=== PATIENT | male | born 1935 | race Caucasian/White ===

== ENCOUNTER 2021-02-22 18:58 | Inpatient (IN) | payer MEDICARE, SELFPAY ==
[~2021-02-22] VITALS: Ht 170.2 cm; Wt 93.0 kg
[2021-02-22 19:05] VITALS: BP_SYST 93
[2021-02-22] MEDS ORDERED: PANTOPRAZOLE SODIUM 80 MG in NS 100 ML IVP ONE (19:30)
[2021-02-22] MEDS ORDERED: NACL 0.9% 1,000 ML IV SCH (19:30)
[2021-02-22] MEDS ORDERED: PANTOPRAZOLE SODIUM 40 MG/VIAL (PROTONIX) IVP ONE (19:30)
[2021-02-22] MEDS ORDERED: ONDANSETRON HCL 4 MG/2 ML VIAL IVP ONE (19:30)
--- NOTE | 2021-02-22 19:43 | NUR ---
YOSI Dong examining the patient in the [facility].
--- NOTE | 2021-02-22 19:50 | NUR ---
Patient triaged and placed in amb [facility]. VSS and patient appears in no acute distress at this time. Accompanied by EMS, awaiting available bed, and MD notified of need for MSE.
[2021-02-22 20:10] LABS: BASOPHILS # (AUTO) 0.2 K/uL (0.0-0.2); BASOPHILS % (AUTO) 1.3 % (0.0-2.0); EOSINOPHILS % (AUTO) 0.2 % (0.0-4.0); HEMATOCRIT 41.1 % (36-54); HEMOGLOBIN 13.8 g/dL (14.0-18.0); LYMPHOCYTES # (AUTO) 0.7 K/uL (1.0-5.5); LYMPHOCYTES % (AUTO) 4.1 % (20.5-51.5); MEAN CORPUSCULAR HEMOGLOBIN 27 pg (27-31); MEAN CORPUSCULAR HGB CONC 34 % (32-36); MEAN CORPUSCULAR VOLUME 80 fL (79.0-98.0); MONOCYTES % (AUTO) 5.7 % (1.7-9.3); NEUTROPHILS % (AUTO) 88.7 % (40.0-70.0); PLATELET COUNT (AUTO) 448 K/uL (130-430); RED BLOOD CELL COUNT(AUTO) 5.11 MIL/uL (4.2-6.2); RED CELL DISTRIBUTION WIDTH 20.4 % (9.0-15.0); WHITE BLOOD COUNT (AUTO) 18.1 K/uL (4.8-10.8)
[2021-02-22 20:17] LABS: ANION GAP 13 (5-15); CALCIUM 9.4 mg/dL (8.4-11.0); CHLORIDE 93 mmol/L (98-107); CREATININE 1.68 mg/dL (0.55-1.30); GLUCOSE 237 mg/dL (70-99); POTASSIUM 4.3 mmol/L (3.5-5.1); SODIUM SERUM 134 mmol/L (136-145); UREA NITROGEN, BLOOD 36 mg/dL (8-21)
[2021-02-22 20:21] LABS: INR 1.2 (0.80-1.20); PROTHROMBIN TIME 12.8 SECS (9.5-12.5)
[2021-02-22 20:23] LABS: ALANINE AMINOTRANSFERASE 37 U/L (12-78); ASPARTATE AMINOTRANSFERASE 21 U/L (10-37); TOTAL BILIRUBIN 0.7 mg/dL (0.0-1.0)
[2021-02-22] MEDS ORDERED: NACL 0.9% 1,000 ML IV ONE (22:45)
[2021-02-22] MEDS ORDERED: cefTRIAXone 1 GM IVPB PREMIX 50 ML IV ONE (22:45)
--- NOTE | 2021-02-23 00:43 | NUR ---
Placed in room 4 . Placed on cardiac technologist, blood pressure machine and pulse oximeter. To gown for exam. Side rails up. Report given to PALOMA CASTANEDA.
--- NOTE | 2021-02-23 00:45 | NUR ---
Pt BIBA to ED with history of diabetes mellitus and hypertension who was brought into the ED by EMS for evaluation of nausea, coffee ground emesis and dark stools for the last three weeks. Per EMS the patient was noted to have increased generalized weakness today and fell while at home. Denies LOC or head trauma. The patient states that nothing seems to make his symptoms better or worse. He describes his symptoms as moderate severity and worsening. He endorses associated pallor and lightheadedness.
--- NOTE | 2021-02-23 00:50 | NUR ---
Dr. Carbone [facility] for pr update and re-eval
--- NOTE | 2021-02-23 01:14 | NUR ---
Dr. Carbone performed Rectal Exam bedside, well tolerated
[2021-02-23 02:50] LABS: BILIRUBIN,URINE NEGATIVE (NEGATIVE); BLOOD, URINE NEGATIVE (NEGATIVE); CLARITY/URINE SL CLOUDY (CLEAR); COLOR,URINE YELLOW (YELLOW); GLUCOSE,URINE NEGATIVE (NEGATIVE); KETONES,URINE NEGATIVE (NEGATIVE); LEUKOCYTE ESTERASE ,URINE NEGATIVE (NEGATIVE); NITRITE, URINE NEGATIVE (NEGATIVE); PROTEIN URINE 1+ (NEGATIVE); UROBILINOGEN,URINE 0.2 (0.2-1.0)
--- NOTE | 2021-02-23 03:05 | NUR ---
Pt's urine sample collected, well tolerated
[2021-02-23 03:30] LABS: BACTERIA,URINE MANY /HPF (None Seen); RBC,URINE 0-3 /HPF (0-3)
[2021-02-23 03:31] LABS: MUCUS,URINE 1+ /LPF (None Seen); YEAST,URINE Many /HPF (None Seen)
--- NOTE | 2021-02-23 04:12 | NUR ---
Pt resting in comfort on gurney rails up, with VSS
--- NOTE | 2021-02-23 06:08 | NUR ---
Pt resting in comfort on ED gurney with rails up, while VSS, no s/s of acute distress
[2021-02-23 07:19] LABS: BASOPHILS # (AUTO) 0.1 K/uL (0.0-0.2); BASOPHILS % (AUTO) 0.5 % (0.0-2.0); EOSINOPHILS # (AUTO) 0.1 K/uL (0.0-0.4); EOSINOPHILS % (AUTO) 0.5 % (0.0-4.0); HEMATOCRIT 33.8 % (36-54); HEMOGLOBIN 11.2 g/dL (14.0-18.0); LYMPHOCYTES # (AUTO) 1.3 K/uL (1.0-5.5); MEAN CORPUSCULAR HEMOGLOBIN 27 pg (27-31); MEAN CORPUSCULAR HGB CONC 33 % (32-36); MEAN CORPUSCULAR VOLUME 82 fL (79.0-98.0); MONOCYTES # (AUTO) 0.8 K/uL (0.0-1.0); MONOCYTES % (AUTO) 7.6 % (1.7-9.3); NEUTROPHILS # (AUTO) 8.4 K/uL (1.8-7.7); NEUTROPHILS % (AUTO) 79.4 % (40.0-70.0); PLATELET COUNT (AUTO) 304 K/uL (130-430); RED BLOOD CELL COUNT(AUTO) 4.13 MIL/uL (4.2-6.2); RED CELL DISTRIBUTION WIDTH 19.4 % (9.0-15.0); WHITE BLOOD COUNT (AUTO) 10.6 K/uL (4.8-10.8)
[2021-02-23 07:36] LABS: ANION GAP 6 (5-15); CALCIUM 8.1 mg/dL (8.4-11.0); CHLORIDE 101 mmol/L (98-107); CREATININE 1.22 mg/dL (0.55-1.30); GLUCOSE 135 mg/dL (70-99); POTASSIUM 3.7 mmol/L (3.5-5.1); SODIUM SERUM 138 mmol/L (136-145); UREA NITROGEN, BLOOD 32 mg/dL (8-21)
[2021-02-23 07:46] LABS: INR 1.2 (0.80-1.20)
[2021-02-23 08:07] LABS: ALANINE AMINOTRANSFERASE 32 U/L (12-78); ALBUMIN 2.3 g/dL (3.4-4.8); ASPARTATE AMINOTRANSFERASE 17 U/L (10-37); THYROID STIMULATING HORMONE 1.16 uIu/mL (0.36-3.74); TOTAL BILIRUBIN 0.4 mg/dL (0.0-1.0)
[2021-02-23 08:30] LABS: CHOLESTEROL 135 mg/dL (<200); HDL CHOLESTEROL 45 mg/dL (>45); LDL CHOLESTEROL 71 mg/dL (<100); TRIGLYCERIDES 86 mg/dL (30-150)
[2021-02-23] MEDS: PANTOPRAZOLE SODIUM 40 MG/VIAL (PROTONIX) IVP SCH (08:53)
--- NOTE | 2021-02-23 14:12 | NUR ---
Pt in bed resting with no s/s of distress. VSS. IV intact.
[2021-02-23] MEDS ORDERED: ACETAMINOPHEN 500 MG TABLET PO ONE (15:30)
[2021-02-23] MEDS: D5/0.45 NS 1,000 ML IV SCH (15:57)
--- NOTE | 2021-02-23 19:49 | NUR ---
assumed care of pt from cheo busby
--- NOTE | 2021-02-23 22:42 | NUR ---
PT IS RESTING IN BED. VSS. GIVEN UPDATE ON SITUATION
--- NOTE | 2021-02-24 01:00 | NUR ---
PT GIVEN SOME PUDDING AND JELLO FOR FOOD. VSS.
[2021-02-24 05:47] LABS: ALANINE AMINOTRANSFERASE 26 U/L (12-78); ALBUMIN 2.2 g/dL (3.4-4.8); ANION GAP 10 (5-15); ASPARTATE AMINOTRANSFERASE 15 U/L (10-37); CALCIUM 7.9 mg/dL (8.4-11.0); CHLORIDE 100 mmol/L (98-107); CREATININE 0.92 mg/dL (0.55-1.30); GLUCOSE 186 mg/dL (70-99); SODIUM SERUM 137 mmol/L (136-145); TOTAL BILIRUBIN 0.4 mg/dL (0.0-1.0); UREA NITROGEN, BLOOD 25 mg/dL (8-21)
[2021-02-24 05:48] LABS: BASOPHILS % (AUTO) 0.4 % (0.0-2.0); EOSINOPHILS # (AUTO) 0.1 K/uL (0.0-0.4); EOSINOPHILS % (AUTO) 1.5 % (0.0-4.0); HEMATOCRIT 34.1 % (36-54); HEMOGLOBIN 11.1 g/dL (14.0-18.0); LYMPHOCYTES # (AUTO) 1.1 K/uL (1.0-5.5); LYMPHOCYTES % (AUTO) 12.3 % (20.5-51.5); MEAN CORPUSCULAR HEMOGLOBIN 27 pg (27-31); MEAN CORPUSCULAR HGB CONC 33 % (32-36); MEAN CORPUSCULAR VOLUME 82 fL (79.0-98.0); MONOCYTES # (AUTO) 0.6 K/uL (0.0-1.0); MONOCYTES % (AUTO) 6.3 % (1.7-9.3); NEUTROPHILS # (AUTO) 7.2 K/uL (1.8-7.7); NEUTROPHILS % (AUTO) 79.5 % (40.0-70.0); PLATELET COUNT (AUTO) 283 K/uL (130-430); RED BLOOD CELL COUNT(AUTO) 4.17 MIL/uL (4.2-6.2); RED CELL DISTRIBUTION WIDTH 19.2 % (9.0-15.0); WHITE BLOOD COUNT (AUTO) 9.1 K/uL (4.8-10.8)
[2021-02-24] MEDS: D5/0.45 NS 1,000 ML IV SCH ×2 (06:15→19:00)
[2021-02-24 06:27] LABS: LIPASE 11657 U/L (73-393); POTASSIUM 2.9 mmol/L (3.5-5.1)
[2021-02-24] MEDS: POTASSIUM CHLORIDE 20 MEQ in D5LR 1,000 ML IV SCH ×2 (06:45→09:00)
[2021-02-24] MEDS ORDERED: POTASSIUM CHLORIDE 20 MEQ TAB.PRT.SR PO ONE (06:45)
[2021-02-24] MEDS ORDERED: KCL 20 mEq in 100 mL (PREMIX) 100 ML IV ONE (06:45)
[2021-02-24] MEDS ORDERED: POTASSIUM CHLORIDE 20 MEQ TAB.PRT.SR ONE (06:51)
--- NOTE | 2021-02-24 07:19 | NUR ---
REPORT GIVEN TO AKILAH CASTANEDA
--- NOTE | 2021-02-24 07:50 | NUR ---
Report recieved from Javier CASTANEDA.
--- NOTE | 2021-02-24 07:52 | NUR ---
Called pharmacy to bring pt his Potassium medications.
[2021-02-24] MEDS: PANTOPRAZOLE SODIUM 40 MG/VIAL (PROTONIX) IVP SCH (09:45)
--- NOTE | 2021-02-24 10:01 | NUR ---
Pt currently running on d5% w/ 0.45% NS and potassium 20meQ running at 50ml/hr.
--- NOTE | 2021-02-24 10:45 | NUR ---
Pt's O2 saturation decreased to 88%. Placed pt on simple mask and O2 saturation did not increase. Placed pt on non-rebreather 15l and O2 saturation dropped to 78%. Dr. Burk notified and he gave order to place pt on BIPAP and to order a cardiology consult.
--- NOTE | 2021-02-24 11:05 | NUR ---
Dr. Junior at bedside.
--- NOTE | 2021-02-24 11:07 | NUR ---
Pt removed from BIPAP and placed on NC 4L. O2 saturation at 97%. EKG done at bedside.
--- NOTE | 2021-02-24 19:15 | NUR ---
Change of shift report received from Elaina Moseley.Awaiting room availability for Tele admit.
--- NOTE | 2021-02-24 20:50 | NUR ---
Report given to Madisyn Moseley/MST via phone To Tele 114.
[2021-02-24 21:15] VITALS: BP_SYST 129
[2021-02-25 07:29] LABS: BASOPHILS # (AUTO) 0.2 K/uL (0.0-0.2); BASOPHILS % (AUTO) 2.2 % (0.0-2.0); EOSINOPHILS # (AUTO) 0.1 K/uL (0.0-0.4); EOSINOPHILS % (AUTO) 1.1 % (0.0-4.0); HEMATOCRIT 40.7 % (36-54); HEMOGLOBIN 13.4 g/dL (14.0-18.0); LYMPHOCYTES # (AUTO) 0.8 K/uL (1.0-5.5); LYMPHOCYTES % (AUTO) 10.8 % (20.5-51.5); MEAN CORPUSCULAR HEMOGLOBIN 27 pg (27-31); MEAN CORPUSCULAR HGB CONC 33 % (32-36); MEAN CORPUSCULAR VOLUME 82 fL (79.0-98.0); MONOCYTES # (AUTO) 0.4 K/uL (0.0-1.0); MONOCYTES % (AUTO) 4.7 % (1.7-9.3); NEUTROPHILS # (AUTO) 6.2 K/uL (1.8-7.7); NEUTROPHILS % (AUTO) 81.2 % (40.0-70.0); PLATELET COUNT (AUTO) 308 K/uL (130-430); RED BLOOD CELL COUNT(AUTO) 4.99 MIL/uL (4.2-6.2); RED CELL DISTRIBUTION WIDTH 19.5 % (9.0-15.0); WHITE BLOOD COUNT (AUTO) 7.6 K/uL (4.8-10.8)
[2021-02-25 08:00] VITALS: BP_SYST 130
[2021-02-25 08:00] LABS: ALANINE AMINOTRANSFERASE 30 U/L (12-78); ALBUMIN 2.6 g/dL (3.4-4.8); AMYLASE 227 U/L (0-100); ANION GAP 8 (5-15); ASPARTATE AMINOTRANSFERASE 17 U/L (10-37); CALCIUM 8.2 mg/dL (8.4-11.0); CHLORIDE 101 mmol/L (98-107); CREATININE 0.82 mg/dL (0.55-1.30); GLUCOSE 164 mg/dL (70-99); POTASSIUM 3.5 mmol/L (3.5-5.1); SODIUM SERUM 135 mmol/L (136-145); TOTAL BILIRUBIN 0.5 mg/dL (0.0-1.0); UREA NITROGEN, BLOOD 15 mg/dL (8-21)
[2021-02-25 08:03] LABS: LIPASE 1389 U/L (73-393)
[2021-02-25] MEDS: D5/0.45 NS 1,000 ML IV SCH ×2 (08:20→21:40)
[2021-02-25] MEDS: PANTOPRAZOLE SODIUM 40 MG/VIAL (PROTONIX) IVP SCH (10:26)
[2021-02-25] MEDS: POTASSIUM CHLORIDE 20 MEQ in D5LR 1,000 ML IV SCH (10:27)
[2021-02-25 10:32] LABS: CHOLESTEROL 165 mg/dL (<200); HDL CHOLESTEROL 58 mg/dL (>45); LDL CHOLESTEROL 78 mg/dL (<100); TRIGLYCERIDES 112 mg/dL (30-150)
--- NOTE | 2021-02-25 10:32 | NUR ---
Dietitian Recommendations *Recommend: Full liquid CCHO diet. Glucerna TID. *Recommend: advance diet when medically appropriate. (GI soft CCHO diet) Please see Nutritional Assessment.
[2021-02-25 12:00] VITALS: BP_SYST 120
[2021-02-25 14:51] VITALS: BP_SYST 120
[2021-02-25 16:27] VITALS: BP_SYST 120
[2021-02-25 20:00] VITALS: BP_SYST 132
--- NOTE | 2021-02-25 20:00 | NUR ---
opening note patient is resting in bed with is eye close vitals taken no noted signs of pain or distress.
[2021-02-25] MEDS: ONDANSETRON HCL 4 MG/2 ML VIAL IVP PRN (21:36)
--- NOTE | 2021-02-25 22:00 | NUR ---
emesis patient noted to have one episode of emesis he was given PRN Zofran with noted improvement within 30min
[2021-02-26 00:45] VITALS: BP_SYST 136
[2021-02-26 02:33] VITALS: BP_SYST 129
[2021-02-26] MEDS: POTASSIUM CHLORIDE 20 MEQ in D5LR 1,000 ML IV SCH ×2 (04:00→12:37)
--- NOTE | 2021-02-26 05:04 | NUR ---
Nutrition Update Constantin Scale 12 noted. Pt admitted for GI Bleed Diet: Regular BMI: 32.1 kg/m2 RD to follow per nutrition care standards.
--- NOTE | 2021-02-26 05:52 | NUR ---
closing note patient stated that he did not need to use the urinal and was monitored throughout the night with no noted signs of distress. patient slept most of the night.
--- NOTE | 2021-02-26 06:15 | NUR ---
RD Notification for N/V >3 days received 02/25/21 2470 Initial Nutritional Assessment was done 02/25/21. Please see note for details. RD to follow per nutrition care standards. ALF, RD
[2021-02-26 08:00] VITALS: BP_SYST 130
[2021-02-26 08:36] LABS: ALANINE AMINOTRANSFERASE 23 U/L (12-78); ALBUMIN 2.5 g/dL (3.4-4.8); ANION GAP 6 (5-15); ASPARTATE AMINOTRANSFERASE 17 U/L (10-37); CALCIUM 8.3 mg/dL (8.4-11.0); CHLORIDE 100 mmol/L (98-107); CREATININE 0.86 mg/dL (0.55-1.30); GLUCOSE 198 mg/dL (70-99); LIPASE 1325 U/L (73-393); SODIUM SERUM 134 mmol/L (136-145); TOTAL BILIRUBIN 0.6 mg/dL (0.0-1.0); UREA NITROGEN, BLOOD 14 mg/dL (8-21)
[2021-02-26 08:38] LABS: BASOPHILS % (AUTO) 0.3 % (0.0-2.0); EOSINOPHILS # (AUTO) 0.1 K/uL (0.0-0.4); EOSINOPHILS % (AUTO) 0.7 % (0.0-4.0); HEMATOCRIT 37.9 % (36-54); HEMOGLOBIN 12.6 g/dL (14.0-18.0); LYMPHOCYTES # (AUTO) 0.8 K/uL (1.0-5.5); LYMPHOCYTES % (AUTO) 7.8 % (20.5-51.5); MEAN CORPUSCULAR HEMOGLOBIN 27 pg (27-31); MEAN CORPUSCULAR HGB CONC 33 % (32-36); MEAN CORPUSCULAR VOLUME 82 fL (79.0-98.0); MONOCYTES # (AUTO) 0.5 K/uL (0.0-1.0); MONOCYTES % (AUTO) 4.6 % (1.7-9.3); NEUTROPHILS # (AUTO) 9.3 K/uL (1.8-7.7); NEUTROPHILS % (AUTO) 86.6 % (40.0-70.0); PLATELET COUNT (AUTO) 287 K/uL (130-430); RED BLOOD CELL COUNT(AUTO) 4.65 MIL/uL (4.2-6.2); RED CELL DISTRIBUTION WIDTH 19.7 % (9.0-15.0); WHITE BLOOD COUNT (AUTO) 10.7 K/uL (4.8-10.8)
[2021-02-26] MEDS: PANTOPRAZOLE SODIUM 40 MG/VIAL (PROTONIX) IVP SCH (09:00)
[2021-02-26 12:00] VITALS: BP_SYST 126
[2021-02-26] MEDS: D5/0.45 NS 1,000 ML IV SCH (12:04)
[2021-02-26] MEDS: ONDANSETRON HCL 4 MG/2 ML VIAL IVP PRN (12:05)
--- NOTE | 2021-02-26 12:05 | NUR ---
Patient has c/o of nausea at this time. One small white mucous containing emesis this am. PT notified for ambulation but will ambulate patient when not nauseous. patient ate 90% of his breakfast. patient incontinent of urine. incontinent care rendered and patient own brief from home applied per his request. No skin breakdown. will monitor for safety and comfort.
--- NOTE | 2021-02-26 13:06 | NUR ---
patient ambulated around the [facility] east and west hallway with front wheel walker. patient able to tolerate. patient has front wheel walker at home and also assistance with family. Will notify
--- NOTE | 2021-02-26 15:42 | NUR ---
Patient has been nauseated all day with two episodes of vomiting. patient has not tolerating PO meals and liquids this shift. MD notified at this time and reglan ivp was ordered. will administer and monitor patient. comfort measures implemented and maintained at this time. call light in reach
[2021-02-26] MEDS: METOCLOPRAMIDE HCL 10 MG/2 ML VIAL IVP PRN (15:46)
[2021-02-26 16:00] VITALS: BP_SYST 136
--- NOTE | 2021-02-26 16:54 | NUR ---
Patient up out of bed wandering appearing confused. patient had episode similar to this two days ago. is at the bedside at the time. Reglan therapeutic. patient reoriented and placed comfortably back in bed. patient continues to be NSR on the monitor the shift with bbb. will continue to maintain comfort and safety.
--- NOTE | 2021-02-26 19:04 | NUR ---
patient refused dinner trarani leonard. patient n/v resolved. patient states he doesnt want to smell any food or it will make him nausous
[2021-02-26] MEDS ORDERED: METOCLOPRAMIDE HCL 10 MG TABLET PO PRN (19:30)
[2021-02-26] MEDS ORDERED: NON-FORMULARY MEDICATION (Melatonin/Pyridoxine HCl (B6) (Melatonin 3 mg Tablet) 1 TAB) PO SCH (19:30)
[2021-02-26] MEDS ORDERED: POLYETHYLENE GLYCOL 3350, 17 GM/ POWD.PACK PO PRN (19:30)
[2021-02-26] MEDS ORDERED: HYDROcodone/ACETAMIN 5-325 MG TAB (NORCO/ VICODIN) PO PRN (19:30)
[2021-02-26] MEDS ORDERED: ONDANSETRON 4 MG ODT TAB PO PRN (19:30)
[2021-02-26] MEDS ORDERED: GLIP2.5T3 PO (19:39)
[2021-02-26] MEDS ORDERED: MELA1TAB29 PO (19:39)
[2021-02-26] MEDS ORDERED: TAMS-11 PO (19:39)
[2021-02-26] MEDS ORDERED: POLY17PO4 PO (19:39)
[2021-02-26] MEDS ORDERED: FINA5TAB3 PO (19:39)
[2021-02-26] MEDS ORDERED: ASCO500T20 PO (19:39)
[2021-02-26] MEDS ORDERED: FERR-69 PO (19:39)
[2021-02-26] MEDS ORDERED: METO-290 PO (19:39)
[2021-02-26] MEDS ORDERED: HYDR-3917 PO (19:39)
[2021-02-26] MEDS ORDERED: ONDA4TAB5 PO (19:39)
[2021-02-26] MEDS ORDERED: OMEP20CA15 PO (19:39)
[2021-02-26 20:00] VITALS: BP_SYST 132
[2021-02-26] MEDS ORDERED: ASCORBIC ACID 500 MG TABLET PO ONE (20:30)
[2021-02-26] MEDS: INSULIN REGULAR, HUMAN 100 UNITS/ML, 10 ML VIAL (humuLIN R) SUBCUT PRN (23:32)
[2021-02-26] MEDS: FERROUS SULFATE 325 MG TABLET.DR PO SCH (23:33)
[2021-02-26] MEDS: TAMSULOSIN HCL 0.4 MG CAP PO SCH (23:33)
[2021-02-27 00:31] VITALS: BP_SYST 142
[2021-02-27 03:12] VITALS: BP_SYST 132
[2021-02-27] MEDS: POTASSIUM CHLORIDE 20 MEQ in D5LR 1,000 ML IV SCH ×2 (03:24→16:43)
[2021-02-27] MEDS: INSULIN REGULAR, HUMAN 100 UNITS/ML, 10 ML VIAL (humuLIN R) SUBCUT PRN ×3 (06:08→17:48)
[2021-02-27 06:54] LABS: BASOPHILS % (AUTO) 0.3 % (0.0-2.0); EOSINOPHILS % (AUTO) 0.2 % (0.0-4.0); HEMATOCRIT 35.2 % (36-54); HEMOGLOBIN 11.3 g/dL (14.0-18.0); LYMPHOCYTES % (AUTO) 6.3 % (20.5-51.5); MEAN CORPUSCULAR HEMOGLOBIN 26 pg (27-31); MEAN CORPUSCULAR HGB CONC 32 % (32-36); MEAN CORPUSCULAR VOLUME 82 fL (79.0-98.0); MONOCYTES # (AUTO) 0.6 K/uL (0.0-1.0); MONOCYTES % (AUTO) 3.4 % (1.7-9.3); NEUTROPHILS # (AUTO) 14.6 K/uL (1.8-7.7); NEUTROPHILS % (AUTO) 89.8 % (40.0-70.0); PLATELET COUNT (AUTO) 244 K/uL (130-430); RED BLOOD CELL COUNT(AUTO) 4.31 MIL/uL (4.2-6.2); RED CELL DISTRIBUTION WIDTH 19.9 % (9.0-15.0); WHITE BLOOD COUNT (AUTO) 16.3 K/uL (4.8-10.8)
[2021-02-27 07:16] LABS: ANION GAP 8 (5-15); CALCIUM 8.2 mg/dL (8.4-11.0); CHLORIDE 101 mmol/L (98-107); CREATININE 0.82 mg/dL (0.55-1.30); GLUCOSE 163 mg/dL (70-99); POTASSIUM 4.2 mmol/L (3.5-5.1); SODIUM SERUM 136 mmol/L (136-145); UREA NITROGEN, BLOOD 13 mg/dL (8-21)
[2021-02-27 08:15] VITALS: BP_SYST 110
--- NOTE | 2021-02-27 08:15 | NUR ---
Rec'd pt A+Ox3- not to full date at 0700. Pt denies pain. IV noted to L AC- infusing IVF. CSMW satisfactory. No headache, dizziness, chest pain, numbness, tingling or edema. Lungs clear. No SOB/cough. RA 98%. BSx4. good appetite- diabetic diet. No nausea/vomiting. Belching/hiccups +++. LBM Feb 25. Void-inc. Skin intact. Bedrest. VSS. Glum 166 this am. No other voiced concerns. Will continue to monitor
[2021-02-27] MEDS: ASCORBIC ACID 500 MG TABLET PO SCH (08:29)
[2021-02-27] MEDS: FERROUS SULFATE 325 MG TABLET.DR PO SCH ×2 (08:29→21:58)
[2021-02-27] MEDS: PANTOPRAZOLE SODIUM 40 MG/VIAL (PROTONIX) IVP SCH (08:29)
[2021-02-27] MEDS ORDERED: ONDANSETRON 4 MG ODT TAB PO ONE (08:45)
[2021-02-27 11:55] VITALS: BP_SYST 127
[2021-02-27] MEDS: D5/0.45 NS 1,000 ML IV SCH ×2 (13:20→13:31)
--- NOTE | 2021-02-27 13:29 | NUR ---
pt changed for inc urine and emesis. see eMAR
[2021-02-27] MEDS: ONDANSETRON HCL 4 MG/2 ML VIAL IVP PRN ×2 (13:31→21:58)
[2021-02-27] MEDS ORDERED: PROCHLORPERAZINE MALEATE 10 MG TABLET PO ONE (15:00)
--- NOTE | 2021-02-27 15:25 | NUR ---
CM: S/w Edyta/spouse, stated there is pallitive care nurse coming for blood drawn once a week. She requested HH or more aids to see the pt. I faxed the HH/PT referral /order to [place] for review and approval. Dr Burk plans to dc pt tomorrow.
[2021-02-27] MEDS: ONDANSETRON 4 MG ODT TAB PO SCH (16:44)
[2021-02-27 16:47] VITALS: BP_SYST 122
--- NOTE | 2021-02-27 18:07 | NUR ---
Pt resting in bed. No appetite- does not want to eat dinner. IVF infusing. No other voiced concerns. Bed in low position. Call campo in reach. Will continue to monitor.
[2021-02-27 20:00] VITALS: BP_SYST 112
[2021-02-27] MEDS: TAMSULOSIN HCL 0.4 MG CAP PO SCH (21:58)
[2021-02-27] MEDS: PROCHLORPERAZINE MALEATE 10 MG TABLET PO SCH (22:00)
[2021-02-28] VITALS: BP_SYST 108
[2021-02-28] MEDS: PROCHLORPERAZINE MALEATE 10 MG TABLET PO SCH ×3 (05:51→21:53)
[2021-02-28] MEDS: ONDANSETRON 4 MG ODT TAB PO SCH ×2 (06:18→17:21)
[2021-02-28] MEDS: INSULIN REGULAR, HUMAN 100 UNITS/ML, 10 ML VIAL (humuLIN R) SUBCUT PRN ×3 (06:19→22:02)
[2021-02-28] MEDS: ASCORBIC ACID 500 MG TABLET PO SCH (07:41)
[2021-02-28 07:42] LABS: BASOPHILS % (AUTO) 0.1 % (0.0-2.0); EOSINOPHILS % (AUTO) 0.1 % (0.0-4.0); HEMATOCRIT 36.2 % (36-54); HEMOGLOBIN 11.9 g/dL (14.0-18.0); LYMPHOCYTES # (AUTO) 0.9 K/uL (1.0-5.5); MEAN CORPUSCULAR HEMOGLOBIN 27 pg (27-31); MEAN CORPUSCULAR HGB CONC 33 % (32-36); MEAN CORPUSCULAR VOLUME 81 fL (79.0-98.0); MONOCYTES # (AUTO) 0.6 K/uL (0.0-1.0); MONOCYTES % (AUTO) 2.5 % (1.7-9.3); NEUTROPHILS # (AUTO) 21.2 K/uL (1.8-7.7); NEUTROPHILS % (AUTO) 93.3 % (40.0-70.0); PLATELET COUNT (AUTO) 233 K/uL (130-430); RED BLOOD CELL COUNT(AUTO) 4.49 MIL/uL (4.2-6.2); RED CELL DISTRIBUTION WIDTH 19.5 % (9.0-15.0); WHITE BLOOD COUNT (AUTO) 22.7 K/uL (4.8-10.8)
[2021-02-28] MEDS: PANTOPRAZOLE SODIUM 40 MG/VIAL (PROTONIX) IVP SCH (07:42)
[2021-02-28] MEDS: FERROUS SULFATE 325 MG TABLET.DR PO SCH ×2 (07:42→21:53)
[2021-02-28 08:00] VITALS: BP_SYST 100
--- NOTE | 2021-02-28 08:00 | NUR ---
Rec'd pt A+Ox3- not to date at 0700. Pt denies pain. IV noted to L AC- infusing IVF. CSMW satisfactory. No headache, dizziness, chest pain, numbness, tingling or edema. Lungs clear. No SOB/cough. O2 4L 92%. BSx4. fair appetite- diabetic diet. No nausea/vomiting at this time. LBM Feb 27. Void-inc. Skin intact. Bedrest. VSS. Glum 183 this am. Pt states he feels No other voiced concerns. Will continue to monitor
[2021-02-28 08:09] LABS: ANION GAP 10 (5-15); CALCIUM 8.5 mg/dL (8.4-11.0); CHLORIDE 99 mmol/L (98-107); CREATININE 0.74 mg/dL (0.55-1.30); GLUCOSE 185 mg/dL (70-99); POTASSIUM 4.2 mmol/L (3.5-5.1); SODIUM SERUM 133 mmol/L (136-145); UREA NITROGEN, BLOOD 15 mg/dL (8-21)
[2021-02-28 08:30] VITALS: BP_SYST 100
[2021-02-28] MEDS: POTASSIUM CHLORIDE 20 MEQ in D5LR 1,000 ML IV SCH (11:51)
[2021-02-28 11:56] VITALS: BP_SYST 101
--- NOTE | 2021-02-28 12:20 | NUR ---
CONSULTATION PAGED REASON FOR CONSULTATION:ELEVATED WBC WAS CONSULT CALLED?Y PERSON WHO WAS NOTIFIED:LIANNA CONSULTING PHYSICIAN:MARIO BANDA TREADLE CUT OFF SAW OPERATOR SPECIALTY:INFECTIOUS DISEASE TREADLE CUT OFF SAW OPERATOR PHONE NUMBER:[phone] REQUESTING PHYSICIAN:QUYNH MARIE
--- NOTE | 2021-02-28 13:05 | NUR ---
Pt resting in bed, family at bedside. Explained patient status and ID consult. Family aware and awaiting ID arrival.
--- NOTE | 2021-02-28 17:00 | NUR ---
pt ted herr called . poc discussed with her. she stated she wanted to talk to dr gonzalez or amelia doctor. fay manufacturing engineer chief of dr bob here at nursing station notified.manufacturing engineer chief stated she will call pt's .
--- NOTE | 2021-02-28 17:58 | NUR ---
Pt resting in bed. No voiced concerns. Call light in reach. Bed in low position. IVF infusing. Will continue to monitor.
--- NOTE | 2021-02-28 20:48 | NUR ---
sbar report Received sbar report from TONYA Tello. Patient is awake resting in bed, no distress and nonlabored breathing on 2L NC. IVF infusing via IV to LAC. Side rails up, bed is locked in lowest position, bed alarm on and call light w/in reach.
[2021-02-28] MEDS: TAMSULOSIN HCL 0.4 MG CAP PO SCH (21:53)
--- NOTE | 2021-02-28 22:06 | NUR ---
meds Scheduled meds given; patient swallowed tablets/pill with water. Accucheck result of 220mg/dL and covered per sliding scale. He denies pain and has no further needs.
[2021-03-01 00:39] VITALS: BP_SYST 120
--- NOTE | 2021-03-01 05:36 | NUR ---
CONSULTATION CALLED FOR DR. PRECIADO FOR CONSULT OF AFIB ORDER BY DR. Alis HURST SPOKE WITH ALDAIR
[2021-03-01] MEDS ORDERED: PIPERACILLIN/TAZOBACTAM 2.25 GM VIAL IV ONE (06:32)
[2021-03-01] MEDS: INSULIN REGULAR, HUMAN 100 UNITS/ML, 10 ML VIAL (humuLIN R) SUBCUT PRN ×2 (07:03→17:44)
[2021-03-01] MEDS: PIPERACILLIN/TAZO 2.25G/DEX-IS 50 ML IV SCH ×4 (07:04→22:26)
[2021-03-01] MEDS: ONDANSETRON 4 MG ODT TAB PO SCH ×2 (07:04→17:44)
[2021-03-01] MEDS: POTASSIUM CHLORIDE 20 MEQ in D5LR 1,000 ML IV SCH ×2 (07:04→17:56)
[2021-03-01] MEDS: PROCHLORPERAZINE MALEATE 10 MG TABLET PO SCH ×3 (07:04→21:23)
--- NOTE | 2021-03-01 07:20 | NUR ---
closing note Patient is awake resting in bed, no distress and nonlabored breathing on 2L NC. IV is alarming it no longer is flushing, not patent. Morning accucheck result of 197mg/dL and covered per sliding scale. Will endorse care.
[2021-03-01] MEDS: FERROUS SULFATE 325 MG TABLET.DR PO SCH ×2 (07:53→21:23)
[2021-03-01] MEDS: PANTOPRAZOLE SODIUM 40 MG/VIAL (PROTONIX) IVP SCH (07:53)
[2021-03-01] MEDS: ASCORBIC ACID 500 MG TABLET PO SCH (07:53)
[2021-03-01 08:00] VITALS: BP_SYST 112
--- NOTE | 2021-03-01 08:00 | NUR ---
Rec'd pt A+Ox3- not to date at 0700. Pt denies pain. IV noted to L AC- not patent, restarted to L arm- 22g. IVF infusing. CSMW satisfactory. No headache, dizziness, chest pain, numbness, tingling or edema. Lungs diminished to R side. No SOB/cough. RA 100%. BSx4. fair/poor appetite- diabetic diet. No nausea/vomiting at this time. LBM Mar 01- loose x2 this am- inc. Void-inc. Skin tear + dressing noted to R elbow. Bedrest. VSS. Glum 197 this am. Pt states he feels exhausted this am and much weaker. No other voiced concerns. Will continue to monitor.
[2021-03-01 11:13] LABS: BASOPHILS % (AUTO) 0.2 % (0.0-2.0); EOSINOPHILS # (AUTO) 0.1 K/uL (0.0-0.4); HEMATOCRIT 32.6 % (36-54); HEMOGLOBIN 10.6 g/dL (14.0-18.0); MEAN CORPUSCULAR HEMOGLOBIN 26 pg (27-31); MEAN CORPUSCULAR HGB CONC 33 % (32-36); MONOCYTES # (AUTO) 0.6 K/uL (0.0-1.0)
[2021-03-01 11:17] LABS: EOSINOPHILS % (AUTO) 0.6 % (0.0-4.0); LYMPHOCYTES # (AUTO) 0.8 K/uL (1.0-5.5); LYMPHOCYTES % (AUTO) 5.7 % (20.5-51.5); MEAN CORPUSCULAR VOLUME 81 fL (79.0-98.0); MONOCYTES % (AUTO) 4.3 % (1.7-9.3); NEUTROPHILS # (AUTO) 12.8 K/uL (1.8-7.7); NEUTROPHILS % (AUTO) 89.2 % (40.0-70.0); PLATELET COUNT (AUTO) 215 K/uL (130-430); RED BLOOD CELL COUNT(AUTO) 4.02 MIL/uL (4.2-6.2); RED CELL DISTRIBUTION WIDTH 19.7 % (9.0-15.0); WHITE BLOOD COUNT (AUTO) 14.4 K/uL (4.8-10.8)
[2021-03-01 12:00] LABS: ALANINE AMINOTRANSFERASE 14 U/L (12-78); ALBUMIN 1.9 g/dL (3.4-4.8); ANION GAP 8 (5-15); ASPARTATE AMINOTRANSFERASE 19 U/L (10-37); CALCIUM 8.8 mg/dL (8.4-11.0); CHLORIDE 101 mmol/L (98-107); CREATININE 0.76 mg/dL (0.55-1.30); GLUCOSE 129 mg/dL (70-99); LIPASE 249 U/L (73-393); POTASSIUM 4.4 mmol/L (3.5-5.1); SODIUM SERUM 134 mmol/L (136-145); TOTAL BILIRUBIN 0.5 mg/dL (0.0-1.0); UREA NITROGEN, BLOOD 23 mg/dL (8-21)
[2021-03-01 12:06] VITALS: BP_SYST 121
--- NOTE | 2021-03-01 15:05 | NUR ---
Spoke with Pt's son in regards to pt status and plan. Son seemed quite content and happy with getting an update. States he will speak to his mom (pts ) about pt status and will update her. Passed the phone to case management for further questions.
--- NOTE | 2021-03-01 15:28 | NUR ---
CM: Discharge barriers: pt c/o increased weakness, nausea/vomiting/diarrhea for the past 2 days. CRX showed acquired PNA. TONYA Garcias provided son/Marcelo about current medical status and POC. Son is not sure whether the pt can go home with home health this weekend. He will consult with family for the placement.
--- NOTE | 2021-03-01 17:20 | NUR ---
Pt IV infiltrated- L arm swollen. Pt states he did not feel it swelling. Attempt x2. Consent and order for midline obtained. Will await placement to restart IVF. Will continue to monitor.
[2021-03-01 17:44] VITALS: BP_SYST 119
--- NOTE | 2021-03-01 18:19 | NUR ---
Pt resting in bed. No voiced concerns. Awaiting midline placement. Tele insitu. Call campo in reach. Bed in low position. Will continue to monitor.
[2021-03-01 20:00] VITALS: BP_SYST 110
[2021-03-01] MEDS: TAMSULOSIN HCL 0.4 MG CAP PO SCH (21:23)
[2021-03-01] MEDS: ONDANSETRON HCL 4 MG/2 ML VIAL IVP PRN (22:32)
[2021-03-02] MEDS: PIPERACILLIN/TAZO 2.25G/DEX-IS 50 ML IV SCH ×5 (00:15→23:00)
[2021-03-02 00:16] VITALS: BP_SYST 112
--- NOTE | 2021-03-02 00:40 | NUR ---
EMESIS AND PRN REGLIN PATIENT INFORMED NURSE THAT HE FELT IF HE HAD TO VOMIT. HE WAS GIVEN I.V REGLIN 30 MIN LATER HE WAS NOTED TO HAVE EMESIS OVER THE SIDE OF HIS BED AND ON THE FLOOR. YELLOW/ GREEN IN COLOR. PATIENT STATED THAT HE FELT BETTER AFTER HE VOMITED. PATIENT WAS MONITORED AND NO OTHER INCIDENTS HAPPENED.
[2021-03-02 05:45] VITALS: BP_SYST 112
[2021-03-02] MEDS: ONDANSETRON 4 MG ODT TAB PO SCH ×2 (06:52→16:17)
[2021-03-02] MEDS: INSULIN REGULAR, HUMAN 100 UNITS/ML, 10 ML VIAL (humuLIN R) SUBCUT PRN ×4 (06:54→21:56)
[2021-03-02] MEDS: PROCHLORPERAZINE MALEATE 10 MG TABLET PO SCH ×3 (06:57→21:50)
[2021-03-02] MEDS: POTASSIUM CHLORIDE 20 MEQ in D5LR 1,000 ML IV SCH ×2 (07:04→22:57)
[2021-03-02 07:47] LABS: BASOPHILS % (AUTO) 0.4 % (0.0-2.0); EOSINOPHILS # (AUTO) 0.1 K/uL (0.0-0.4); EOSINOPHILS % (AUTO) 0.7 % (0.0-4.0); HEMATOCRIT 32.9 % (36-54); HEMOGLOBIN 10.8 g/dL (14.0-18.0); LYMPHOCYTES % (AUTO) 10.3 % (20.5-51.5); MEAN CORPUSCULAR HEMOGLOBIN 27 pg (27-31); MEAN CORPUSCULAR HGB CONC 33 % (32-36); MEAN CORPUSCULAR VOLUME 81 fL (79.0-98.0); MONOCYTES # (AUTO) 0.7 K/uL (0.0-1.0); MONOCYTES % (AUTO) 6.8 % (1.7-9.3); NEUTROPHILS # (AUTO) 8.3 K/uL (1.8-7.7); NEUTROPHILS % (AUTO) 81.8 % (40.0-70.0); PLATELET COUNT (AUTO) 231 K/uL (130-430); RED BLOOD CELL COUNT(AUTO) 4.06 MIL/uL (4.2-6.2); RED CELL DISTRIBUTION WIDTH 19.5 % (9.0-15.0); WHITE BLOOD COUNT (AUTO) 10.2 K/uL (4.8-10.8)
[2021-03-02 08:00] VITALS: BP_SYST 106
--- NOTE | 2021-03-02 08:00 | NUR ---
OPENING NOTE Received shift report from nurse. Patient AxOx3 currently resting in bed and respirations remain even and non-labored on room air. PICC line is patent and infusing fluids as ordered. Bed locked in lowest position and call light is within reach. Will continue to monitor.
[2021-03-02] MEDS: ASCORBIC ACID 500 MG TABLET PO SCH (08:41)
[2021-03-02] MEDS: FERROUS SULFATE 325 MG TABLET.DR PO SCH ×2 (08:41→21:50)
[2021-03-02] MEDS: PANTOPRAZOLE SODIUM 40 MG/VIAL (PROTONIX) IVP SCH (08:42)
[2021-03-02 09:28] LABS: ANION GAP 10 (5-15); CALCIUM 8.9 mg/dL (8.4-11.0); CHLORIDE 100 mmol/L (98-107); CREATININE 0.91 mg/dL (0.55-1.30); GLUCOSE 233 mg/dL (70-99); POTASSIUM 4.3 mmol/L (3.5-5.1); SODIUM SERUM 133 mmol/L (136-145); UREA NITROGEN, BLOOD 24 mg/dL (8-21)
[2021-03-02 12:41] VITALS: BP_SYST 116
[2021-03-02] MEDS: ONDANSETRON HCL 4 MG/2 ML VIAL IVP PRN (13:54)
[2021-03-02 16:33] VITALS: BP_SYST 128
[2021-03-02 20:00] VITALS: BP_SYST 122
[2021-03-02] MEDS: TAMSULOSIN HCL 0.4 MG CAP PO SCH (21:50)
[2021-03-03] VITALS (8 sets, daily range): BP systolic 110–122
[2021-03-03] MEDS: PIPERACILLIN/TAZO 2.25G/DEX-IS 50 ML IV SCH ×3 (06:06→17:36)
[2021-03-03] MEDS: PROCHLORPERAZINE MALEATE 10 MG TABLET PO SCH ×3 (06:24→21:53)
[2021-03-03] MEDS: ONDANSETRON 4 MG ODT TAB PO SCH ×2 (06:25→17:00)
[2021-03-03] MEDS: INSULIN REGULAR, HUMAN 100 UNITS/ML, 10 ML VIAL (humuLIN R) SUBCUT PRN ×3 (06:33→22:01)
[2021-03-03] MEDS: ASCORBIC ACID 500 MG TABLET PO SCH (09:15)
[2021-03-03] MEDS: PANTOPRAZOLE SODIUM 40 MG/VIAL (PROTONIX) IVP SCH (09:15)
[2021-03-03] MEDS: FERROUS SULFATE 325 MG TABLET.DR PO SCH ×2 (09:15→21:53)
--- NOTE | 2021-03-03 09:20 | NUR ---
Nutrition F/U Admitting Diagnosis GI Bleed Reviewed Pertinent Medical/Surgical Hx Medical Record Patient Medical History Comment: Melena, N/V, Hx of Adenocarcinoma, Mildly elevated RELAY DISPATCHER level, Mild anemia, Leukocytosis, DM, HTN, Anorexia, Wt loss, Pancreatobiliary Carcinoma per MD notes. SARS-CoV-2 Ag Rapid 02/[address] bedside visit deferred d/t high RD load. Per EMR review, pt continues w/ N/V, fair appetite noted -- however, PO intake average of 17% based on past 10 meal records since Nutrition Assessment 02/25; abd is soft and non-distended w/ active bowel sounds; last BM x1 03/03. Pt is at increased risk for malnutrition. ONS is warranted. Current Diet Order/Nutrition Support CCHO x4 days Patient/Significant Other Unable To Verbalize Education Provided Not Indicated Pertinent Medications VIT C, ferrous sulfate, SSI, zofran, piperacillin/tazobactam, reglan, protonix Pertinent Labs 03/02: Na 133 L, K 4.3 WNL, BG 233 H, BUN 24 H, CRE 0.91 WNL, TG 112 WNL, Chol 165 WNL Height (Feet) 5 feet Height (Inches) 8.00 inches Weight (Pounds) 160 pounds (02/25) -- NEW WT: 205#/93 kg (02/25) -- questionable 45# wt increase documented Weight (Calculated Kilograms) 72.556829 kilograms Patient Weight 72.575 kg Body Mass Index 24.33 kg/m2 (normal) -- NEW BMI: 32.1 kg/m2 (obesity class I) %IBW 104 [place]/Adjusted Body Weight 154#/ 70kg Recent Weight Change N/A Weight Status Appropriate Current % PO N/A Estimated Energy Expenditure (kcals/day) 4991-9711 (30-35 kcal/kg CBW for CA) Estimated Protein Required (g/day) 73-110 (1-1.5 gm/kg CBW for CA) Estimated Fluid Required (l/day) 1.8-2.2 (25-30ml/kg CBW for GERIAT maintenance) Problem/Etiology/Signs/Symptoms Altered nutrition related labs r/t endocrine dysfunction AEB elevated BG, DM. 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 *ongoing Expected Outcomes/Goals Monitor diet advancement, appetite and PO intake w/ goal of pt meeting more than 75% of estimated nutritional needs, labs trending WNL, normal GI function, skin integrity/wt maintenance. Dietitian Recommendations * CCHO, soft (low-fiber/bland) diet, Glucerna TID, Gerard BID (supplements yield 840 kcal/day, 35 gm protein/day) * Encourage increase PO intakes Follow Up High Risk: F/U in 2-3 days
--- NOTE | 2021-03-03 09:25 | NUR ---
Dietitian Recommendations * CCHO, soft (low-fiber/bland) diet, Glucerna TID, Gerard BID (supplements yield 840 kcal/day, 35 gm protein/day) * Encourage increase PO intakes LP, RD Please refer to Nutrition F/U for details.
--- NOTE | 2021-03-03 09:40 | NUR ---
Nutrition Consult RD received Nutrition Consult for decreased appetite, calorie count 03/03/[address] implemented 2-day calorie count via [employer] nutrition software to begin at lunch today, 03/03 and will end at lunch 03/05 (as long as pt is still in-house). Please complete calorie count sheet that will be placed underneath the patient's meal ticket at each meal time TID. Please save completed sheet for RD and/or give to FNS Dept after each meal. Addendum: 03/03/21 at [address] RD spoke w/ pt's primary RN, Erna at [facility]. RD instructed RN to have calorie count completed and left in [facility] close to handwashing station for future RD collection.
[2021-03-03] MEDS: POTASSIUM CHLORIDE 20 MEQ in D5LR 1,000 ML IV SCH (10:59)
[2021-03-03] MEDS ORDERED: PROMETHAZINE HCL 12.5 MG/SUPP.RECT RC PRN (12:30)
[2021-03-03] MEDS ORDERED: DEXTROSE 50% JECT 50 ML DISP.SYRIN IVP PRN (17:15)
[2021-03-03] MEDS: TAMSULOSIN HCL 0.4 MG CAP PO SCH (21:53)
[2021-03-04] VITALS: BP_SYST 112; BP_SYST 118
[2021-03-04] MEDS: POTASSIUM CHLORIDE 20 MEQ in D5LR 1,000 ML IV SCH ×2 (00:01→15:26)
[2021-03-04] MEDS: PIPERACILLIN/TAZO 2.25G/DEX-IS 50 ML IV SCH ×4 (00:02→17:55)
--- NOTE | 2021-03-04 01:03 | NUR ---
PAGED DOCTOR PAGED DOCTOR ROLF
--- NOTE | 2021-03-04 01:18 | NUR ---
BLEEDING WHEN PATIENT WAS CHECKED IT WAS NOTED THAT HE HAD A LARGE AMOUNT OF BLOOD ON HIS BED. WHEN CHECKING THE PATIENT IT WAS NOTED THAT BRIGHT RED BLOOD WITH LARGE CLOTS WAS COMING OUT OF HIS RECTUM. DR. MONTENEGRO WAS CONTACTED AND A STAT ORDER WAS GIVEN FOR A CBC WITH HEMOGLOBIN IS BELOW 7.0 TO GIVE 2 LITERS OF BLOOD. LAB WAS CONTACTED AND THE ORDER WAS PLACED.
[2021-03-04 02:26] LABS: BASOPHILS % (AUTO) 0.3 % (0.0-2.0); EOSINOPHILS % (AUTO) 0.4 % (0.0-4.0); HEMATOCRIT 26.7 % (36-54); HEMOGLOBIN 8.8 g/dL (14.0-18.0); LYMPHOCYTES # (AUTO) 0.9 K/uL (1.0-5.5); LYMPHOCYTES % (AUTO) 8.2 % (20.5-51.5); MEAN CORPUSCULAR HEMOGLOBIN 27 pg (27-31); MEAN CORPUSCULAR HGB CONC 33 % (32-36); MEAN CORPUSCULAR VOLUME 81 fL (79.0-98.0); MONOCYTES # (AUTO) 0.7 K/uL (0.0-1.0); MONOCYTES % (AUTO) 5.9 % (1.7-9.3); NEUTROPHILS # (AUTO) 9.7 K/uL (1.8-7.7); NEUTROPHILS % (AUTO) 85.2 % (40.0-70.0); PLATELET COUNT (AUTO) 235 K/uL (130-430); RED BLOOD CELL COUNT(AUTO) 3.29 MIL/uL (4.2-6.2); RED CELL DISTRIBUTION WIDTH 19.7 % (9.0-15.0); WHITE BLOOD COUNT (AUTO) 11.4 K/uL (4.8-10.8)
[2021-03-04 02:38] LABS: ALANINE AMINOTRANSFERASE 24 U/L (12-78); ALBUMIN 1.6 g/dL (3.4-4.8); ANION GAP 6 (5-15); ASPARTATE AMINOTRANSFERASE 18 U/L (10-37); CALCIUM 7.9 mg/dL (8.4-11.0); CHLORIDE 99 mmol/L (98-107); CREATININE 0.91 mg/dL (0.55-1.30); GLUCOSE 132 mg/dL (70-99); POTASSIUM 4.4 mmol/L (3.5-5.1); SODIUM SERUM 133 mmol/L (136-145); TOTAL BILIRUBIN 0.7 mg/dL (0.0-1.0); UREA NITROGEN, BLOOD 16 mg/dL (8-21)
[2021-03-04 03:02] LABS: TRIGLYCERIDES 61 mg/dL (30-150)
[2021-03-04] MEDS: ONDANSETRON 4 MG ODT TAB PO SCH ×2 (06:08→17:40)
[2021-03-04] MEDS: PROCHLORPERAZINE MALEATE 10 MG TABLET PO SCH ×3 (06:08→21:37)
[2021-03-04] MEDS: INSULIN REGULAR, HUMAN 100 UNITS/ML, 10 ML VIAL (humuLIN R) SUBCUT PRN ×4 (06:12→21:58)
[2021-03-04 08:07] VITALS: BP_SYST 99
--- NOTE | 2021-03-04 08:19 | NUR ---
NOTES PATIENT AAOX 4. NON PRODUCTIVE COUGH NOTED. LUNGS BILATERALLY DIMINISHED AT THE BASES. NO OXYGEN NOTED. HAS MIDLINE PICC GRZEGORZ WITH LR PLUS 20 KCL AT 75CC/HR INFUSING ON WELL. EATING BREAKFAST . CALL LIGHTS WITHIN REACH. BED LOW POSITION, ALARMED AND LOCKED. WILL CONTINUE
[2021-03-04] MEDS: PANTOPRAZOLE SODIUM 40 MG/VIAL (PROTONIX) IVP SCH (08:31)
[2021-03-04] MEDS: FERROUS SULFATE 325 MG TABLET.DR PO SCH ×2 (08:31→21:37)
[2021-03-04] MEDS: ASCORBIC ACID 500 MG TABLET PO SCH (08:31)
--- NOTE | 2021-03-04 08:41 | NUR ---
BS 154 MG /DL. REFUSED TO HAVE COVERAGE FOR NOW.
--- NOTE | 2021-03-04 08:42 | NUR ---
DUE MEDS GIVEN
--- NOTE | 2021-03-04 09:16 | NUR ---
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 SARS-CoV-2 Ag Rapid 02/23 Negative Subjective Information: Nutrition consult for TPN received. RD bedside visit was deferred and short note d/t high pt load. Per EMR review, abdomen is soft and tender, BM 03/04 x3, Constantin scale: 11, pale skin color and RN noted erythema to R lateral elbow and 2+ non-pitting edema to left arm. No PO intake recorded in EMR since 03/01/2021. Per previous RD note, calorie count has been ordered for pt to assess adequacy of PO intake. RD to follow up on calorie count forms in nursing unit tomorrow (03/05 end of calorie count). May continue to provide PO diet w/ TPN. Pt w/ peripheral line. RD s/w pharmD re: TPN rec. PharmD acknowledged. Current Diet Order/Nutrition Support: GI Soft CCHO, Glucerna TID, Gerard BID x1 day Patient/Significant Other Unable To Verbalize Education Provided Not Indicated Pertinent Medications VIT C, ferrous sulfate, SSI, zofran, piperacillin/tazobactam, Miralax, Reglan, D5% Lr at 75ml/hr (306 calories) Pertinent Labs 03/04: Na 133 L, K 4.4 WNL, BG 132 H, POC BG 224H, BUN 16 WNL, CRE 0.91 WNL, TG 61 WNL, Chol 165 WNL Height (Feet) 5 feet, 8 inches. New Height in chart: 5'7 Weight (Pounds) 160 pounds (02/25) -- NEW WT: 205#/93 kg (02/25) -- questionable 45# wt increase documented Body Mass Index 24.33 kg/m2 (normal) -- NEW BMI: 32.1 kg/m2 (obesity class I) [place]/Adjusted Body Weight 154#/ 70kg. NEW IBW: 148#/ 67kg Recent Weight Change N/A Weight Status Appropriate Current % PO N/A NEW Estimated Energy Expenditure (kcals/day) (30-35 kcal/kg IBW for CA) NEW Estimated Protein Required (g/day) 69-100 (1-1.5 gm/kg IBW for CA) NEW Estimated Fluid Required (l/day) 1.7-2 (25-30ml/kg IBW for GERIAT maintenance) Problem/Etiology/Signs/Symptoms Altered nutrition related labs r/t endocrine dysfunction AEB elevated BG, DM. 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 *ongoing Inadequate oral intake r/t very poor appetite 2/2 complicated GI function AEB negligible PO and need for TPN. (*new) Expected Outcomes/Goals Monitor TPN tolerance, appetite and intake w/ goal of pt meeting more than 75% of estimated nutritional needs, labs trending WNL, normal GI function, skin integrity/wt maintenance. Dietitian Recommendations * Recommend: D20% AA 10% at 90ml/hr (goal rate), IL20% at 10ml/hr via peripheral line. Provides: 1646 kcal, 108gm protein, 2400ml fluids and GIR 1.6gm CHO/kg/min. Meets (at goal): 82% of lower end of estimated calorie needs and 108% of upper end of estimated protein needs. * Consider discontinuing D5% Lr once TPN is started. * Continue CCHO, soft (low-fiber/bland) diet, Glucerna TID, Gerard BID Follow Up High Risk: F/U in 2-3 days
--- NOTE | 2021-03-04 09:25 | NUR ---
Dietitian Recommendations * Recommend: D20% AA 10% at 90ml/hr (goal rate), IL20% at 10ml/hr via peripheral line. Provides: 1646 kcal, 108gm protein, 2400ml fluids and GIR 1.6gm CHO/kg/min. Meets (at goal): 82% of lower end of estimated calorie needs and 108% of upper end of estimated protein needs. * Consider discontinuing D5% Lr once TPN is started. * Continue CCHO, soft (low-fiber/bland) diet, Glucerna TID, Gerard BID [facility], RD
[2021-03-04] MEDS ORDERED: HYDROCORTISONE ACETATE 1 SUPP (ANUSOL HC) RC ONE (09:30)
--- NOTE | 2021-03-04 11:12 | NUR ---
CM: Pt starts on TPN today. Per Arpan/son will discuss with family for GT placement plan. He also asked not to call pt's due to her high anxiety. Please first call son/Marcelo (same name as patient) and Arpan. Rakesh: I spoke with Dayami, NVP dept # [phone] requesting to home health arrangement set up. Dayami confirmed receipt the order and referral package faxing date 02/27/21. Said, the assigned CM/Dolis will call me back to discuss the dcp. Addendum: 03/04/21 at 1618 by Claire Johns RN Per Dr Burk, to consult GI for possible GT feeding placement.
[2021-03-04 11:47] VITALS: BP_SYST 102
--- NOTE | 2021-03-04 15:50 | NUR ---
CALLED DR RAHEL SANTILLAN REGARDING CONTINOUS BLEEDING FROM THE RECTUM. ABOUT 2 CUPS. BRIGHT RED BLOOD. BARBARA AND HYGIENE CARE DONE. AWAITING TO CALL BACK
[2021-03-04 16:54] VITALS: BP_SYST 100
[2021-03-04] MEDS: METOCLOPRAMIDE HCL 10 MG/2 ML VIAL IVP PRN (17:41)
[2021-03-04 18:10] LABS: BASOPHILS % (AUTO) 0.3 % (0.0-2.0); EOSINOPHILS % (AUTO) 0.3 % (0.0-4.0); HEMATOCRIT 22.5 % (36-54); HEMOGLOBIN 7.3 g/dL (14.0-18.0); LYMPHOCYTES # (AUTO) 1.1 K/uL (1.0-5.5); LYMPHOCYTES % (AUTO) 8.2 % (20.5-51.5); MEAN CORPUSCULAR HEMOGLOBIN 26 pg (27-31); MEAN CORPUSCULAR HGB CONC 32 % (32-36); MEAN CORPUSCULAR VOLUME 81 fL (79.0-98.0); MONOCYTES # (AUTO) 0.9 K/uL (0.0-1.0); NEUTROPHILS % (AUTO) 84.2 % (40.0-70.0); PLATELET COUNT (AUTO) 252 K/uL (130-430); RED BLOOD CELL COUNT(AUTO) 2.78 MIL/uL (4.2-6.2); RED CELL DISTRIBUTION WIDTH 18.9 % (9.0-15.0); WHITE BLOOD COUNT (AUTO) 13.1 K/uL (4.8-10.8)
[2021-03-04 18:53] VITALS: BP_SYST 99
--- NOTE | 2021-03-04 20:03 | NUR ---
ENDORSED TO INCOMING NURSE.
--- NOTE | 2021-03-04 20:05 | NUR ---
CALLED DR MCGINNIS SPOKE VALDEZ REGARDING H/H 7.3/22.5 AWAITING TO CALL BACK.
[2021-03-04] MEDS ORDERED: *PPN PER PHARMACY XX PRN (21:00)
[2021-03-04] MEDS ORDERED: SODIUM CHLORIDE IV SCH ×10 (21:00)
[2021-03-04] MEDS ORDERED: [UNRECOGNIZED DRUG - OTHER] IV SCH ×10 (21:00)
[2021-03-04] MEDS ORDERED: TPN PERIPHERAL IV SCH ×10 (21:00)
[2021-03-04] MEDS: HYDROCORTISONE ACETATE 1 SUPP (ANUSOL HC) RC SCH (21:00)
[2021-03-04] MEDS ORDERED: NA PHOS IV SCH ×10 (21:00)
[2021-03-04] MEDS: TAMSULOSIN HCL 0.4 MG CAP PO SCH (21:37)
[2021-03-05] MEDS: FAT EMULSIONS 250 ML IV SCH (00:27)
[2021-03-05] MEDS: PIPERACILLIN/TAZO 2.25G/DEX-IS 50 ML IV SCH ×4 (00:49→18:19)
[2021-03-05 01:20] VITALS: BP_SYST 93
[2021-03-05] MEDS: POTASSIUM CHLORIDE 20 MEQ in D5LR 1,000 ML IV SCH ×2 (02:44→18:10)
[2021-03-05 06:58] LABS: BASOPHILS % (AUTO) 0.4 % (0.0-2.0); EOSINOPHILS # (AUTO) 0.1 K/uL (0.0-0.4); EOSINOPHILS % (AUTO) 0.6 % (0.0-4.0); HEMATOCRIT 22.5 % (36-54); HEMOGLOBIN 7.5 g/dL (14.0-18.0); LYMPHOCYTES # (AUTO) 0.9 K/uL (1.0-5.5); LYMPHOCYTES % (AUTO) 8.8 % (20.5-51.5); MEAN CORPUSCULAR HEMOGLOBIN 28 pg (27-31); MEAN CORPUSCULAR HGB CONC 33 % (32-36); MEAN CORPUSCULAR VOLUME 83 fL (79.0-98.0); MONOCYTES # (AUTO) 0.6 K/uL (0.0-1.0); MONOCYTES % (AUTO) 5.5 % (1.7-9.3); NEUTROPHILS # (AUTO) 8.5 K/uL (1.8-7.7); NEUTROPHILS % (AUTO) 84.7 % (40.0-70.0); PLATELET COUNT (AUTO) 211 K/uL (130-430); RED BLOOD CELL COUNT(AUTO) 2.71 MIL/uL (4.2-6.2); RED CELL DISTRIBUTION WIDTH 18.6 % (9.0-15.0)
[2021-03-05] MEDS: ONDANSETRON 4 MG ODT TAB PO SCH ×2 (07:00→18:09)
[2021-03-05 07:14] LABS: ALANINE AMINOTRANSFERASE 16 U/L (12-78); ALBUMIN 1.6 g/dL (3.4-4.8); ANION GAP 7 (5-15); ASPARTATE AMINOTRANSFERASE 14 U/L (10-37); CALCIUM 7.9 mg/dL (8.4-11.0); CHLORIDE 101 mmol/L (98-107); CREATININE 0.77 mg/dL (0.55-1.30); GLUCOSE 239 mg/dL (70-99); PHOSPHORUS 2.9 mg/dL (2.7-4.5); POTASSIUM 4.7 mmol/L (3.5-5.1); SODIUM SERUM 134 mmol/L (136-145); UREA NITROGEN, BLOOD 15 mg/dL (8-21)
[2021-03-05 08:25] VITALS: BP_SYST 90
[2021-03-05 08:25] LABS: WHITE BLOOD COUNT (AUTO) 10.1 K/uL (4.8-10.8)
[2021-03-05 08:44] VITALS: BP_SYST 105
[2021-03-05] MEDS: ASCORBIC ACID 500 MG TABLET PO SCH (08:54)
[2021-03-05] MEDS: FERROUS SULFATE 325 MG TABLET.DR PO SCH ×2 (08:54→20:50)
[2021-03-05] MEDS: PROCHLORPERAZINE MALEATE 10 MG TABLET PO SCH ×3 (08:54→20:50)
[2021-03-05] MEDS: PANTOPRAZOLE SODIUM 40 MG/VIAL (PROTONIX) IVP SCH (08:55)
--- NOTE | 2021-03-05 08:59 | NUR ---
NOTES PATIENT AAO 4. LUNGS BILATERALLY DIMINISHED AT THE BASES. ABDOMEN SOFT AND NON DISTENDED. HAS IV ACCESS ON THE RT UPPER ARM MIDLINE LR +20 KNL AT 100CC/HR INFUSING ON WELL. TPN 43CC/HR INFUSING AND TPN AT 5CC/HR INFUSING ON WELL. CALL LIGHTS WITHIN REACH. BED LOW POSITION, ALARMED AND LOCKED. WILL CONTINUE
--- NOTE | 2021-03-05 09:01 | NUR ---
DUE MES GIVEN AT THIS TIME.
--- NOTE | 2021-03-05 09:59 | NUR ---
Calorie Count MD ordered calorie count on 03/03, previous RD provided instructions to nursing staff on how to complete calorie count forms from dietary that should have come with the meal tray. RD received 1 form yesterday for lunch, and none before or after that. Per EMR review, pt was started on TPN yesterday, and was placed on Clear liquid diet this morning. PO intake from lunch 03/04 provided: 350 kcal, and 12gm protein. PPN intake for rate of 43ml/hr provides: 796 kcal, 52gm protein, 1152ml and GIR 0.76gm/kg/min which meets 37% of estimated calorie needs and 52% of estimated protein needs. Current PO intake does not meet at least 75% of estimated needs and RD rec to continue w/ PPN support until pt is meeting >75% of nutrient needs from PO alone. RD to follow per nutrition care standards. ASHLEY, RD
--- NOTE | 2021-03-05 10:00 | NUR ---
DR MCGINNIS CAME TO ORDER COLONOSCOPY
[2021-03-05 13:31] VITALS: BP_SYST 107
[2021-03-05] MEDS: INSULIN REGULAR, HUMAN 100 UNITS/ML, 10 ML VIAL (humuLIN R) SUBCUT PRN (14:05)
--- NOTE | 2021-03-05 14:45 | NUR ---
BT INITIATION: Consent signed per TELEPHONE CONSENT FROM , agreeing to administration of blood. Blood has been type and crossmatched. Blood sent from blood bank. Information on unit of blood checked against patient wristband at bedside by two nurses. All information matches. Patient or responsible green party informed of potential complications associated with blood transfusion. Informed of possible transfusion reaction symptoms. Aware of need to notify nurse at once of itching, shortness of breath, flushing, feeling of impending doom, or other symptoms not previously present. Vital signs taken within 5 minutes prior to initiation of transfusion. RN will remain with patient for first 15 minutes of transfusion at which time vital signs will be re-assessed. VITALS SIGNS STABLE. AFEBRILE
[2021-03-05] MEDS ORDERED: BISACODYL 5 MG TABLET.DR (DULCOLAX) PO ONE (17:00)
--- NOTE | 2021-03-05 17:00 | NUR ---
FIRST UNIT OF PRBC ENDED AT THIS TIME WITH NO TRANSFUSION REACTION NOTED. PATIENT STABLE.
[2021-03-05] MEDS ORDERED: GOLYTELY / COLYTE SOLUTION 4 LITERS PO ONE (18:00)
[2021-03-05 18:06] VITALS: BP_SYST 100
--- NOTE | 2021-03-05 18:20 | NUR ---
LATEST BS 151 MV/XL.REFUSED COVERAGE SO FAR.
[2021-03-05] MEDS: TAMSULOSIN HCL 0.4 MG CAP PO SCH (20:50)
[2021-03-05] MEDS ORDERED: NA PHOS IV SCH ×9 (21:00)
[2021-03-05] MEDS ORDERED: TPN PERIPHERAL IV SCH ×9 (21:00)
[2021-03-05] MEDS ORDERED: SODIUM CHLORIDE IV SCH ×9 (21:00)
[2021-03-05] MEDS ORDERED: [UNRECOGNIZED DRUG - OTHER] IV SCH ×9 (21:00)
--- NOTE | 2021-03-05 21:04 | NUR ---
PAGED PAGED DOCTOR ROLF
[2021-03-05] MEDS: ONDANSETRON HCL 4 MG/2 ML VIAL IVP PRN (21:38)
[2021-03-06] MEDS: FAT EMULSIONS 250 ML IV SCH ×2 (00:54→22:23)
[2021-03-06] MEDS: PIPERACILLIN/TAZO 2.25G/DEX-IS 50 ML IV SCH ×4 (02:43→17:02)
[2021-03-06 03:51] VITALS: BP_SYST 120
[2021-03-06 03:58] VITALS: BP_SYST 120
[2021-03-06] MEDS: POTASSIUM CHLORIDE 20 MEQ in D5LR 1,000 ML IV SCH (05:47)
[2021-03-06] MEDS: PROCHLORPERAZINE MALEATE 10 MG TABLET PO SCH ×3 (06:00→22:21)
[2021-03-06] MEDS: ONDANSETRON 4 MG ODT TAB PO SCH ×2 (06:59→16:26)
[2021-03-06 07:11] LABS: BASOPHILS % (AUTO) 0.4 % (0.0-2.0); EOSINOPHILS # (AUTO) 0.2 K/uL (0.0-0.4); EOSINOPHILS % (AUTO) 2.1 % (0.0-4.0); HEMATOCRIT 26.8 % (36-54); HEMOGLOBIN 8.9 g/dL (14.0-18.0); LYMPHOCYTES # (AUTO) 0.8 K/uL (1.0-5.5); MEAN CORPUSCULAR HEMOGLOBIN 28 pg (27-31); MEAN CORPUSCULAR HGB CONC 33 % (32-36); MEAN CORPUSCULAR VOLUME 85 fL (79.0-98.0); MONOCYTES # (AUTO) 0.5 K/uL (0.0-1.0); MONOCYTES % (AUTO) 5.7 % (1.7-9.3); NEUTROPHILS # (AUTO) 7.1 K/uL (1.8-7.7); NEUTROPHILS % (AUTO) 82.8 % (40.0-70.0); PLATELET COUNT (AUTO) 256 K/uL (130-430); RED BLOOD CELL COUNT(AUTO) 3.16 MIL/uL (4.2-6.2); RED CELL DISTRIBUTION WIDTH 17.6 % (9.0-15.0); WHITE BLOOD COUNT (AUTO) 8.5 K/uL (4.8-10.8)
[2021-03-06] MEDS: ONDANSETRON HCL 4 MG/2 ML VIAL IVP PRN ×2 (07:38→15:45)
[2021-03-06] MEDS: INSULIN REGULAR, HUMAN 100 UNITS/ML, 10 ML VIAL (humuLIN R) SUBCUT PRN ×4 (07:48→22:42)
--- NOTE | 2021-03-06 08:10 | NUR ---
OPENING NOTE Received shift report from security shift supervisor RN. Patient currently resting in bed and respirations remain even and non-labored on room air. Midline is patent and infusing TPN/fluids as ordered. Bed locked in lowest position and call light is within reach. Will continue to monitor.
[2021-03-06 08:12] LABS: ALANINE AMINOTRANSFERASE 18 U/L (12-78); ALBUMIN 1.7 g/dL (3.4-4.8); ANION GAP 7 (5-15); ASPARTATE AMINOTRANSFERASE 10 U/L (10-37); CALCIUM 7.9 mg/dL (8.4-11.0); CHLORIDE 100 mmol/L (98-107); CREATININE 0.77 mg/dL (0.55-1.30); GLUCOSE 244 mg/dL (70-99); PHOSPHORUS 2.7 mg/dL (2.7-4.5); POTASSIUM 3.8 mmol/L (3.5-5.1); SODIUM SERUM 134 mmol/L (136-145); TOTAL BILIRUBIN 0.8 mg/dL (0.0-1.0); UREA NITROGEN, BLOOD 12 mg/dL (8-21)
[2021-03-06 08:41] VITALS: BP_SYST 100
[2021-03-06] MEDS: ASCORBIC ACID 500 MG TABLET PO SCH (09:00)
[2021-03-06] MEDS: FERROUS SULFATE 325 MG TABLET.DR PO SCH ×2 (09:00→22:22)
[2021-03-06] MEDS: HYDROCORTISONE ACETATE 1 SUPP (ANUSOL HC) RC SCH ×2 (09:00→21:00)
[2021-03-06] MEDS: PANTOPRAZOLE SODIUM 40 MG/VIAL (PROTONIX) IVP SCH (09:01)
[2021-03-06 11:59] LABS: BILIRUBIN,URINE NEGATIVE (NEGATIVE); BLOOD, URINE 1+ (NEGATIVE); CLARITY/URINE CLEAR (CLEAR); COLOR,URINE YELLOW (YELLOW); GLUCOSE,URINE 2+ (NEGATIVE); KETONES,URINE NEGATIVE (NEGATIVE); LEUKOCYTE ESTERASE ,URINE NEGATIVE (NEGATIVE); NITRITE, URINE NEGATIVE (NEGATIVE); PROTEIN URINE NEGATIVE (NEGATIVE); UROBILINOGEN,URINE 0.2 (0.2-1.0)
[2021-03-06 12:00] VITALS: BP_SYST 115
--- NOTE | 2021-03-06 12:00 | NUR ---
Jarret Gave PRN zofran. Provided hygiene care and changed linens.
[2021-03-06 12:36] LABS: BACTERIA,URINE RARE /HPF (None Seen); MUCUS,URINE 1+ /LPF (None Seen); RBC,URINE 0-3 /HPF (0-3); WBC,URINE 0-3 /HPF (0-3)
[2021-03-06 13:37] VITALS: BP_SYST 115
--- NOTE | 2021-03-06 16:00 | NUR ---
Spoke to Dr. Clifford Spoke to Dr. Clifford for PRN nausea medication. Received orders. Noted and will carry out.
[2021-03-06] MEDS ORDERED: PROMETHAZINE HCL 25 MG TABLET PO PRN (16:30)
[2021-03-06 16:41] VITALS: BP_SYST 105
--- NOTE | 2021-03-06 18:55 | NUR ---
CLOSING NOTE Patient currently resting in bed and respirations remain even and non-labored on room air. Midline is patent and infusing fluids as ordered. Bed locked in lowest position and call light is within reach. All needs met throughout shift. Will endorse to shift commander RN.
[2021-03-06] MEDS ORDERED: [UNRECOGNIZED DRUG - OTHER] IV SCH ×9 (21:00)
[2021-03-06] MEDS ORDERED: NA PHOS IV SCH ×9 (21:00)
[2021-03-06] MEDS ORDERED: SODIUM CHLORIDE IV SCH ×9 (21:00)
[2021-03-06] MEDS ORDERED: TPN PERIPHERAL IV SCH ×9 (21:00)
[2021-03-06] MEDS: TAMSULOSIN HCL 0.4 MG CAP PO SCH (22:21)
[2021-03-07] MEDS: PIPERACILLIN/TAZO 2.25G/DEX-IS 50 ML IV SCH ×4 (00:21→19:40)
[2021-03-07] MEDS: POTASSIUM CHLORIDE 20 MEQ in D5LR 1,000 ML IV SCH ×3 (00:22→19:43)
[2021-03-07] MEDS: PROCHLORPERAZINE MALEATE 10 MG TABLET PO SCH ×3 (06:28→22:32)
[2021-03-07] MEDS: ONDANSETRON HCL 4 MG/2 ML VIAL IVP PRN (06:29)
[2021-03-07] MEDS: INSULIN REGULAR, HUMAN 100 UNITS/ML, 10 ML VIAL (humuLIN R) SUBCUT PRN ×3 (06:47→17:27)
[2021-03-07] MEDS: ONDANSETRON 4 MG ODT TAB PO SCH ×2 (07:00→17:27)
--- NOTE | 2021-03-07 07:45 | NUR ---
OPENING NOTE Received shift report update from operations supervisor 2nd shift RN. Patient AxOx3 currently resting in bed and respirations remain even and non-labored on room air. Midline is patent and infusing fluids as ordered. Bed locked in lowest position and call light is within reach. will continue to monitor.
[2021-03-07 07:55] VITALS: BP_SYST 106
[2021-03-07 07:59] VITALS: BP_SYST 106
[2021-03-07 08:12] LABS: BASOPHILS % (AUTO) 0.5 % (0.0-2.0); EOSINOPHILS # (AUTO) 0.1 K/uL (0.0-0.4); EOSINOPHILS % (AUTO) 1.1 % (0.0-4.0); HEMATOCRIT 25.8 % (36-54); HEMOGLOBIN 8.7 g/dL (14.0-18.0); LYMPHOCYTES # (AUTO) 0.8 K/uL (1.0-5.5); LYMPHOCYTES % (AUTO) 10.4 % (20.5-51.5); MEAN CORPUSCULAR HEMOGLOBIN 29 pg (27-31); MEAN CORPUSCULAR HGB CONC 34 % (32-36); MEAN CORPUSCULAR VOLUME 85 fL (79.0-98.0); MONOCYTES # (AUTO) 0.5 K/uL (0.0-1.0); MONOCYTES % (AUTO) 6.5 % (1.7-9.3); NEUTROPHILS % (AUTO) 81.5 % (40.0-70.0); PLATELET COUNT (AUTO) 307 K/uL (130-430); RED BLOOD CELL COUNT(AUTO) 3.03 MIL/uL (4.2-6.2); RED CELL DISTRIBUTION WIDTH 18.2 % (9.0-15.0); WHITE BLOOD COUNT (AUTO) 7.4 K/uL (4.8-10.8)
[2021-03-07 08:18] LABS: ANION GAP 8 (5-15); CALCIUM 7.8 mg/dL (8.4-11.0); CHLORIDE 100 mmol/L (98-107); GLUCOSE 205 mg/dL (70-99); SODIUM SERUM 136 mmol/L (136-145)
[2021-03-07 08:19] LABS: ALANINE AMINOTRANSFERASE 13 U/L (12-78); ALBUMIN 1.6 g/dL (3.4-4.8); ASPARTATE AMINOTRANSFERASE 10 U/L (10-37); PHOSPHORUS 2.7 mg/dL (2.7-4.5); TOTAL BILIRUBIN 0.5 mg/dL (0.0-1.0); UREA NITROGEN, BLOOD 15 mg/dL (8-21)
[2021-03-07 08:22] VITALS: BP_SYST 110
[2021-03-07] MEDS: PANTOPRAZOLE SODIUM 40 MG/VIAL (PROTONIX) IVP SCH (08:46)
[2021-03-07] MEDS: FERROUS SULFATE 325 MG TABLET.DR PO SCH ×2 (08:46→22:29)
[2021-03-07] MEDS: ASCORBIC ACID 500 MG TABLET PO SCH (08:46)
[2021-03-07] MEDS: HYDROCORTISONE ACETATE 1 SUPP (ANUSOL HC) RC SCH (09:00)
--- NOTE | 2021-03-07 12:00 | NUR ---
GAVE PRN Gave PRN Phenergan for nausea.
[2021-03-07 12:30] VITALS: BP_SYST 122
[2021-03-07] MEDS: POLYETHYLENE GLYCOL 3350, 17 GM/ POWD.PACK PO SCH ×2 (15:06→22:32)
[2021-03-07 16:00] VITALS: BP_SYST 120
--- NOTE | 2021-03-07 16:00 | NUR ---
FAMILY AT BEDSIDE Family at bedside. Administered Miralax dissolved in Gatorade (see eMAR) Received orders from Dr. Burk regarding potassium level. Noted and will carry out.
--- NOTE | 2021-03-07 18:48 | NUR ---
CLOSING NOTE Patient currently resting in bed and respirations remain even and non-labored on room air. Midline is patent and infusing fluids as ordered. Bed locked in lowest position and call light is within reach. All needs met throughout shift. Will endorse to senior front end engineer RN.
[2021-03-07 21:00] VITALS: BP_SYST 135
[2021-03-07] MEDS: SODIUM CHLORIDE IV SCH ×10 (22:19)
[2021-03-07] MEDS: TPN PERIPHERAL IV SCH ×10 (22:19)
[2021-03-07] MEDS: [UNRECOGNIZED DRUG - OTHER] IV SCH ×10 (22:19)
[2021-03-07] MEDS: NA PHOS IV SCH ×10 (22:19)
[2021-03-07] MEDS: FAT EMULSIONS 250 ML IV SCH (22:21)
[2021-03-07] MEDS: TAMSULOSIN HCL 0.4 MG CAP PO SCH (22:30)
[2021-03-07] MEDS: POTASSIUM CHLORIDE 10 MEQ TAB.PRT.SR PO SCH (22:37)
--- NOTE | 2021-03-07 22:45 | NUR ---
Patient REFUSING MIRALAX po laxative .
--- NOTE | 2021-03-07 23:15 | NUR ---
COMPAZINE 10 MG po given for GI upset & helpful .
--- NOTE | 2021-03-08 | NUR ---
Patient is NPO this hour for possible AM procedure , procedures explained .
[2021-03-08 00:57] VITALS: BP_SYST 110
[2021-03-08] MEDS: PIPERACILLIN/TAZO 2.25G/DEX-IS 50 ML IV SCH ×4 (01:24→18:26)
[2021-03-08] MEDS: PROCHLORPERAZINE MALEATE 10 MG TABLET PO SCH ×3 (06:00→20:49)
[2021-03-08] MEDS: ONDANSETRON 4 MG ODT TAB PO SCH ×2 (07:00→18:26)
[2021-03-08] MEDS: INSULIN REGULAR, HUMAN 100 UNITS/ML, 10 ML VIAL (humuLIN R) SUBCUT PRN (07:17)
[2021-03-08] MEDS ORDERED: MEPERIDINE 100 MG INJ. 100 MG/ML VIAL ONE (08:44)
[2021-03-08] MEDS: FERROUS SULFATE 325 MG TABLET.DR PO SCH ×2 (09:00→20:49)
[2021-03-08] MEDS: PANTOPRAZOLE SODIUM 40 MG/VIAL (PROTONIX) IVP SCH (09:00)
[2021-03-08] MEDS: POTASSIUM CHLORIDE 10 MEQ TAB.PRT.SR PO SCH ×2 (09:00→20:49)
[2021-03-08] MEDS: HYDROCORTISONE ACETATE 1 SUPP (ANUSOL HC) RC SCH ×2 (09:00→20:58)
[2021-03-08] MEDS: ASCORBIC ACID 500 MG TABLET PO SCH (09:00)
[2021-03-08 09:57] LABS: ALANINE AMINOTRANSFERASE 18 U/L (12-78); ALBUMIN 1.6 g/dL (3.4-4.8); ANION GAP 8 (5-15); ASPARTATE AMINOTRANSFERASE 10 U/L (10-37); CALCIUM 7.8 mg/dL (8.4-11.0); CHLORIDE 101 mmol/L (98-107); CREATININE 0.72 mg/dL (0.55-1.30); GLUCOSE 208 mg/dL (70-99); PHOSPHORUS 3.1 mg/dL (2.7-4.5); POTASSIUM 3.9 mmol/L (3.5-5.1); SODIUM SERUM 137 mmol/L (136-145); TOTAL BILIRUBIN 0.3 mg/dL (0.0-1.0); UREA NITROGEN, BLOOD 16 mg/dL (8-21)
[2021-03-08] MEDS: MIDAZOLAM HCL 5 MG/5 ML VIAL ONE ×3 (10:05→10:19)
[2021-03-08] MEDS ORDERED: EPINEPHrine JECT 0.1 MG/ML SYR ONE (10:21)
[2021-03-08 13:32] LABS: BASOPHILS # (AUTO) 0.1 K/uL (0.0-0.2); BASOPHILS % (AUTO) 0.3 % (0.0-2.0); EOSINOPHILS # (AUTO) 0.1 K/uL (0.0-0.4); EOSINOPHILS % (AUTO) 0.3 % (0.0-4.0); HEMATOCRIT 24.7 % (36-54); HEMOGLOBIN 8.1 g/dL (14.0-18.0); LYMPHOCYTES # (AUTO) 0.9 K/uL (1.0-5.5); LYMPHOCYTES % (AUTO) 4.8 % (20.5-51.5); MEAN CORPUSCULAR HEMOGLOBIN 28 pg (27-31); MEAN CORPUSCULAR HGB CONC 33 % (32-36); MEAN CORPUSCULAR VOLUME 86 fL (79.0-98.0); MONOCYTES # (AUTO) 0.8 K/uL (0.0-1.0); MONOCYTES % (AUTO) 4.1 % (1.7-9.3); NEUTROPHILS # (AUTO) 17.3 K/uL (1.8-7.7); NEUTROPHILS % (AUTO) 90.5 % (40.0-70.0); PLATELET COUNT (AUTO) 398 K/uL (130-430); RED BLOOD CELL COUNT(AUTO) 2.87 MIL/uL (4.2-6.2); RED CELL DISTRIBUTION WIDTH 17.6 % (9.0-15.0)
[2021-03-08 13:36] LABS: WHITE BLOOD COUNT (AUTO) 19.1 K/uL (4.8-10.8)
--- NOTE | 2021-03-08 14:10 | NUR ---
SIM: updated and faxed clinicals to [facility] tel # [phone]. stated snf in [facility] declined pt. The pt has order transferring to [facility]. She aware that the pt had colonoscopy today, on TPN , 3 L NC and waiting for bed at [facility]. Addendum: 03/08/21 at 1648 by Claire Johns RN Per Nicole, possible transfer today. DC package placed to nursing station. -- TONYA cage.
[2021-03-08] MEDS: POTASSIUM CHLORIDE 20 MEQ in D5LR 1,000 ML IV SCH (18:26)
[2021-03-08 20:00] VITALS: BP_SYST 112
[2021-03-08] MEDS: NA PHOS IV SCH ×10 (20:48)
[2021-03-08] MEDS: [UNRECOGNIZED DRUG - OTHER] IV SCH ×10 (20:48)
[2021-03-08] MEDS: SODIUM CHLORIDE IV SCH ×10 (20:48)
[2021-03-08] MEDS: TPN PERIPHERAL IV SCH ×10 (20:48)
[2021-03-08] MEDS: FAT EMULSIONS 250 ML IV SCH (20:48)
[2021-03-08] MEDS: TAMSULOSIN HCL 0.4 MG CAP PO SCH (20:49)
[2021-03-08] MEDS ORDERED: SODIUM CHLORIDE IV SCH ×9 (21:00)
[2021-03-08] MEDS ORDERED: [UNRECOGNIZED DRUG - OTHER] IV SCH ×9 (21:00)
[2021-03-08] MEDS ORDERED: NA PHOS IV SCH ×9 (21:00)
[2021-03-08] MEDS ORDERED: TPN PERIPHERAL IV SCH ×9 (21:00)
[2021-03-08 22:00] VITALS: BP_SYST 116
--- NOTE | 2021-03-08 22:30 | NUR ---
D/C Patient Patient given medication reconciliation form and D/C instructions. Exit Care provided. Patient verbalized understanding. discussed with patient the results and treatment provided. Ambulatory with steady gait for discharge to home. Patient in stable condition, ID band removed. IV catheter removed, intact and dressing applied, no active bleeding. Rx of given. Patient educated on pain management. All belongings sent with patient.i telephoned pt's ;nemesio;vick.apprised pt's transfer order;location;[facility].mrs herr consented to transfer.i procuered the transfer.pt.assessed p/t transfer:v/s wnl.blood glucose assesed value;217mg/dl.2100pmedications administered.pt.pertenences accounted for;sentw pt.cellphone w manager finance,photos.dilshad.i conveyed pt's report/data;casie.transfer packet completed.;l to assume pt's care. @[facility].
== END 2021-03-09 00:34 | disposition short-term general hospital (02) | DRG 871 ==
LOC: SED 18:58 → STU 02-23 02:55
PROVIDERS: ADMIT Internal Medicine; ATTEND Internal Medicine
PROC: 5A09357 Assistance with Respiratory Ventilation, Less than 24 Consecutive Hours, Continuous Positive Airway Pressure (ICD-10-PCS; 2021-02-24)
PROC: 30233N1 Transfusion of Nonautologous Red Blood Cells into Peripheral Vein, Percutaneous Approach (ICD-10-PCS; 2021-03-03)
PROC: 0W3P8ZZ Control Bleeding in Gastrointestinal Tract, Via Natural or Artificial Opening Endoscopic (ICD-10-PCS; principal; 2021-03-08 09:00)
DX: A41.9 Sepsis, unspecified organism (principal); N17.0 Acute kidney failure with tubular necrosis; K85.90 Acute pancreatitis without necrosis or infection, unspecified; N39.0 Urinary tract infection, site not specified; C24.0 Malignant neoplasm of extrahepatic bile duct; C25.9 Malignant neoplasm of pancreas, unspecified; K62.6 Ulcer of anus and rectum; D64.9 Anemia, unspecified; D72.829 Elevated white blood cell count, unspecified; I10 Essential (primary) hypertension; R63.0 Anorexia; Z20.822 Contact with and (suspected) exposure to COVID-19; E11.9 Type 2 diabetes mellitus without complications; K64.9 Unspecified hemorrhoids; E87.6 Hypokalemia; Z85.07 Personal history of malignant neoplasm of pancreas; Z85.038 Personal history of other malignant neoplasm of large intestine
CPT/HCPCS: 36415; 45382; 71045; 76376; 80048; 80053; 80061; 81000; 82150; 82272; 82962; 83605; 83690; 83735; 83880; 84100; 84443; 84478; 85025; 85610-TC; 85730-TC; 86301; 86886; 86900; 86901; 86920; 87040; 87086; 93005; 94660; 94760; C9113; G0378; J0171; J0610; J0696; J1815; J2175; J2250; J2405; J2543; J2765; J3475; J3480; J7120; J7131; P9021; Q0162; Q0164; Q0169